=== PATIENT | female | born 1955 | race Two or more races ===

== ENCOUNTER 2019-10-31 12:36 | Emergency (ER) | payer OTHER ==
[2019-10-31 12:41] VITALS: BMI 25.0
--- NOTE | 2019-10-31 12:47 | PDOC ---
Rapid Medical Evaluation Chief Complaint: Blood Pressure Problem Time Seen by Provider: 10/31/19 12:38 Medical Evaluation: Allergies Allergy/AdvReac Type Severity Reaction Status Date / Time No Known Allergies Allergy Verified 10/31/19 12:41 Vital Signs Temp Pulse Resp BP Pulse Ox 98.8 F 70 19 235/108 H 98 10/31/19 12:39 10/31/19 12:39 10/31/19 12:39 10/31/19 12:39 10/31/19 12:39 10/31/19 12:46 I have performed a brief in-person evaluation of this patient. The patient presents with a chief complaint of:elevated BP at this am. Has h/o HTN on meds and reports compliance. No sxs at this time Pertinent physical exam findings:BP sig elevated at triage I have ordered the following:nothing The patient will proceed to the ED for further evaluation. 10/31/19 12:49 Discharge Disposition - Diagnosis Elevated blood pressure reading - Referrals - Patient Instructions - Post Discharge Activity
--- NOTE | 2019-10-31 13:08 | PDOC ---
History of Present Illness <GloriaLeopoldo - Last Filed: 10/31/19 16:43> - History of Present Illness Initial Comments: Geneva Neal is a 64 y/o female with PMH significant for hypertension and peripartum stroke in 1992, sent in from PCP today for high blood pressure. She recently moved from [place], where she was hospitalized earlier this year. She states that her BP is always above 200. Went to PCP today to establish care and was sent in for high blood pressure in the 230s. Prescribed metoprolol and chlorthalidone and continues to take those medications. No headache. No vision changes. No dizziness. No nausea/vomiting. No weakness. No numbness/tingling. No abd pain. No dysuria. No leg swelling. No chest pain/shortness of breath. <Mushtaq Lehman - Last Filed: 10/31/19 16:47> - General Chief Complaint: Blood Pressure Problem Stated Complaint: HYPERTENSION Time Seen by Provider: 10/31/19 12:38 Past History <Leopoldo Castro - Last Filed: 10/31/19 16:43> - Medical History COPD: No HTN: Yes - Psycho-Social/Smoking History Smoking History: Never smoked Have you smoked in the past 12 months: No Information on smoking cessation initiated: Yes - Substance Abuse Hx (Audit-C & DAST Scrn) How often the patient has a drink containing alcohol: Never Score: In Men: 4 or > Positive; In Women: 3 or > Positive: 0 Screen Result (Pos requires Nsg. Audit-10AR): Negative In the last yr the pt used illegal drug/Rx for NonMed reason: No Score: Yes response is considered Positive: 0 Screen Result (Positive result requires Nsg. DAST-10): Negative <Mushtaq Lehman - Last Filed: 10/31/19 16:47> - Medical History Allergies/Adverse Reactions: Allergies Allergy/AdvReac Type Severity Reaction Status Date / Time No Known Allergies Allergy Verified 10/31/19 12:41 Home Medications: Ambulatory Orders Aspirin [ASA -] 81 mg PO DAILY 10/31/19 Chlorthalidone 50 mg PO DAILY 10/31/19 Metoprolol Succinate 100 mg PO DAILY 10/31/19 Omeprazole 40 mg PO DAILY 10/31/19 Review of Systems - Review of Systems Comments:: GENERAL/CONSTITUTIONAL: No fever or chills. No weakness._ HEAD, EYES, EARS, NOSE AND THROAT: No change in vision. No change in hearing. No sore throat._ CARDIOVASCULAR: No chest pain or shortness of breath_ RESPIRATORY: Denies cough, hemoptysis_ GASTROINTESTINAL: No nausea, vomiting, diarrhea or constipation._ GENITOURINARY: No dysuria, frequency, or change in urination._ MUSCULOSKELETAL: No joint or muscle swelling or pain. No neck or back pain._ SKIN: No rash_ NEUROLOGIC: No headache, vertigo, loss of consciousness, or change in strength/sensation._ ENDOCRINE: No increased thirst. No abnormal weight change_ HEMATOLOGIC/LYMPHATIC: No anemia, easy bleeding, or history of blood clots._ ALLERGIC/IMMUNOLOGIC: No hives or skin allergy._ <Mushtaq Lehman - Last Filed: 10/31/19 16:47> *Physical Exam - Vital Signs Last Vital Signs Temp Pulse Resp BP Pulse Ox 98.5 F 87 19 205/98 H 98 10/31/19 16:00 10/31/19 16:00 10/31/19 16:00 10/31/19 16:00 10/31/19 13:55 <Leopoldo Castro - Last Filed: 10/31/19 16:43> - Vital Signs Last Vital Signs Temp Pulse Resp BP Pulse Ox 98.8 F 70 19 235/108 H 98 10/31/19 12:39 10/31/19 12:39 10/31/19 12:39 10/31/19 12:39 10/31/19 12:39 - Physical Exam GENERAL: Awake, alert, and oriented to person/place/time, in no acute distress_ HEAD: No signs of trauma, normocephalic, atraumatic _ EYES: PERRLA, EOMI, sclera anicteric, conjunctiva clear_ ENT: Hearing grossly normal, nares patent, oropharynx clear without exudates. No uvular deviation. Moist mucosa_ NECK: Normal ROM, supple, no lymphadenopathy, JVD, or masses_ LUNGS: No distress, speaks in full sentences, clear to auscultation bilaterally _ HEART: Regular rate and rhythm, normal S1 and S2, no murmurs appreciated, peripheral pulses normal and equal bilaterally._ ABDOMEN: Soft, nontender, normoactive bowel sounds. No guarding, no rebound. No masses_ EXTREMITIES: Normal inspection, Normal range of motion, no edema. No clubbing or cyanosis_ NEUROLOGICAL: Cranial nerves II through XII grossly intact. Normal speech, normal gait, no focal sensorimotor deficits _ SKIN: Warm, Dry, normal turgor, no rashes or lesions noted_ <Mushtaq Lehman - Last Filed: 10/31/19 16:47> ED Treatment Course - LABORATORY CBC & Chemistry Diagram: 10/31/19 13:43 10/31/19 13:43 - ADDITIONAL ORDERS Additional order review: Laboratory Results 10/31/19 10/31/19 15:58 13:43 Sodium 141 Potassium 4.5 Chloride 106 Carbon Dioxide 29 Anion Gap 6 L BUN 15.7 Creatinine 0.7 Est GFR (CKD-EPI)AfAm 106.87 Est GFR (CKD-EPI)NonAf 92.21 Random Glucose 97 Calcium 9.5 Total Bilirubin 0.5 AST 38 H ALT 41 Alkaline Phosphatase 147 H Creatine Kinase 133 Troponin I < 0.02 Total Protein 7.6 Albumin 3.6 Urine Color Yellow Urine Appearance Cloudy Urine pH 6.0 Ur Specific Thayer 1.026 Urine Protein 1+ H Urine Glucose (UA) Negative Urine Ketones Trace H Urine Blood Negative Urine Nitrite Negative Urine Bilirubin Negative Urine Urobilinogen 1.0 Ur Leukocyte Esterase Trace Urine WBC (Auto) 30 Urine RBC (Auto) 17 Urine Casts (Auto) 5 U Epithel Cells (Auto) >36 Urine Bacteria (Auto) 1742 10/31/19 13:43 RBC 4.86 MCV 84.9 MCHC 33.0 RDW 14.3 MPV 8.5 Neutrophils % 56.8 Lymphocytes % 34.6 Monocytes % 7.3 Eosinophils % 0.9 Basophils % 0.4 - Medications Given in the ED: ED Medications Discontinued Medications Generic Name Dose Route Start Last Admin Trade Name Freq PRN Reason Stop Dose Admin Metoprolol Succinate 50 mg 10/31/19 15:10 10/31/19 15:18 Toprol Xl - PO 10/31/19 15:11 50 mg ONCE ONE Administration <Leopoldo Castro - Last Filed: 10/31/19 16:43> - LABORATORY CBC & Chemistry Diagram: 10/31/19 13:43 10/31/19 13:43 <Mushtaq Lehman - Last Filed: 10/31/19 16:47> Medical Decision Making - Medical Decision Making 10/31/19 13:08 64F hx of HTN sent in from urgent care today for high blood pressure in the 230s. Currently on metoprolol and chlorthalidone. Asymptomatic with no symptoms of end organ damage. Hospitalized earlier this year for hypertensive urgency. -cbc, cmp -ekg, trop, cxr -ua 10/31/19 13:48 CXR negative for acute chest pathology. 10/31/19 14:21 EKG shows 61 bpm, NSR, LVH, HI 164, QTc 430, no ST elevation/depression. 10/31/19 15:09 Labs reviewed. Laboratory Last Values WBC 4.8 K/mm3 (4.0-10.0) 10/31/19 13:43 RBC 4.86 M/mm3 (3.60-5.2) 10/31/19 13:43 Hgb 13.7 GM/dL (10.7-15.3) 10/31/19 13:43 Hct 41.3 % (32.4-45.2) 10/31/19 13:43 MCV 84.9 fl (80-96) 10/31/19 13:43 MCH 28.1 pg (25.7-33.7) 10/31/19 13:43 MCHC 33.0 g/dl (32.0-36.0) 10/31/19 13:43 RDW 14.3 % (11.6-15.6) 10/31/19 13:43 Plt Count 210 K/MM3 (134-434) 10/31/19 13:43 MPV 8.5 fl (7.5-11.1) 10/31/19 13:43 Absolute Neuts (auto) 2.7 K/mm3 (1.5-8.0) 10/31/19 13:43 Neutrophils % 56.8 % (42.8-82.8) 10/31/19 13:43 Lymphocytes % 34.6 % (8-40) 10/31/19 13:43 Monocytes % 7.3 % (3.8-10.2) 10/31/19 13:43 Eosinophils % 0.9 % (0-4.5) 10/31/19 13:43 Basophils % 0.4 % (0-2.0) 10/31/19 13:43 Nucleated RBC % 0 % (0-0) 10/31/19 13:43 Sodium 141 mmol/L (136-145) 10/31/19 13:43 Potassium 4.5 mmol/L (3.5-5.1) 10/31/19 13:43 Chloride 106 mmol/L (98-107) 10/31/19 13:43 Carbon Dioxide 29 mmol/L (21-32) 10/31/19 13:43 Anion Gap 6 MMOL/L (8-16) L 10/31/19 13:43 BUN 15.7 mg/dL (7-18) 10/31/19 13:43 Creatinine 0.7 mg/dL (0.55-1.3) 10/31/19 13:43 Est GFR (CKD-EPI)AfAm 106.87 10/31/19 13:43 Est GFR (CKD-EPI)NonAf 92.21 10/31/19 13:43 Random Glucose 97 mg/dL (74-106) 10/31/19 13:43 Calcium 9.5 mg/dL (8.5-10.1) 10/31/19 13:43 Total Bilirubin 0.5 mg/dL (0.2-1) 10/31/19 13:43 AST 38 U/L (15-37) H 10/31/19 13:43 ALT 41 U/L (13-61) 10/31/19 13:43 Alkaline Phosphatase 147 U/L (45-117) H 10/31/19 13:43 Creatine Kinase 133 U/L (26-192) 10/31/19 13:43 Troponin I < 0.02 ng/ml (0.00-0.05) 10/31/19 13:43 Total Protein 7.6 g/dl (6.4-8.2) 10/31/19 13:43 Albumin 3.6 g/dl (3.4-5.0) 10/31/19 13:43 10/31/19 16:46 UA reviewed. Urine Test Results Urine Color Yellow 10/31/19 15:58 Urine Appearance Cloudy 10/31/19 15:58 Urine pH 6.0 (5.0-8.0) 10/31/19 15:58 Ur Specific Thayer 1.026 (1.010-1.035) 10/31/19 15:58 Urine Protein 1+ (NEGATIVE) H 10/31/19 15:58 Urine Glucose (UA) Negative (NEGATIVE) 10/31/19 15:58 Urine Ketones Trace (NEGATIVE) H 10/31/19 15:58 Urine Blood Negative (NEGATIVE) 10/31/19 15:58 Urine Nitrite Negative (NEGATIVE) 10/31/19 15:58 Urine Bilirubin Negative (NEGATIVE) 10/31/19 15:58 Ur Leukocyte Esterase Trace (NEGATIVE) 10/31/19 15:58 Plan to d/c home with PCP f/u on Tuesday. Pt remains asymptomatic at this time. Strict return precautions given. All questions answered. Pt verbalized understanding and agreement with plan. <Mushtaq Lehman - Last Filed: 10/31/19 16:47> Discharge <Leopoldo Castro - Last Filed: 10/31/19 16:43> - Discharge Information Problems reviewed: Yes - Admission No <Mushtaq Lehman - Last Filed: 10/31/19 16:47> - Discharge Information Clinical Impression/Diagnosis: Elevated blood pressure reading Condition: Stable Disposition: HOME - Follow up/Referral Referrals: Raf Craig [Primary Care Provider] - - Patient Discharge Instructions Patient Printed Discharge Instructions: DI for High Blood Pressure Additional Instructions: You need to have your blood pressure re-checked by your primary doctor as soon as possible, as it was elevated today. Uncontrolled blood pressure can eventually lead to kidney disease, heart disease, other serious illness, disability, or even . Please keep your appointment with your primary care doctor on Tuesday and discuss ways to lower your blood pressure. If you experience any chest pain, shortness of breath, headache, vision changes, or any other concerning symptoms, return to the ER immediately.
[2019-10-31 13:56] VITALS: TEMP 98.5
[2019-10-31 13:57] LABS: BASO % 0.4 % (0-2.0); EOS % 0.9 % (0-4.5); HEMATOCRIT 41.3 % (32.4-45.2); HEMOGLOBIN 13.7 GM/dL (10.7-15.3); LYMPH % 34.6 % (8-40); MCH 28.1 pg (25.7-33.7); MEAN CELL VOLUME 84.9 fl (80-96); MEAN PLT VOLUME 8.5 fl (7.5-11.1); MONO % 7.3 % (3.8-10.2); NEUT % 56.8 % (42.8-82.8); PLATELET COUNT 210 K/MM3 (134-434); RBC 4.86 M/mm3 (3.60-5.2); RDW 14.3 % (11.6-15.6); WHITE BLOOD COUNT 4.8 K/mm3 (4.0-10.0)
--- NOTE | 2019-10-31 14:36 | PDOC ---
Documentation entered by Najma Veronica SCRIBE, acting as scribe for Leopoldo Castro MD. Leopoldo Castro MD: This documentation has been prepared by the Jeremías sanches Ana, SCRIBE, under my direction and personally reviewed by me in its entirety. I confirm that the documentation accurately reflects all work, treatment, procedures, and medical decision making performed by me. Attending Attestation - Resident Resident Name: DominikMushtaq - ED Attending Attestation I have performed the following: I have examined & evaluated the patient, The case was reviewed & discussed with the resident, I agree w/resident's findings & plan, Exceptions are as noted - HPI HPI: 10/31/19 13:06 Patient is a 64 year old female with a significant past medical history of hypertension and peripartum stroke in 1992, who presents to the ED, from PCP's office, with high blood pressure. Patient stated her blood pressure is usually around 200 but that it was in the 230s today at PCP's office. Patient was hospitalized in [place] earlier this year for hypertensive urgency. Patient is compliant with prescribed medications. Patient denies: weakness, fevers, chills, headaches, dizziness, any vision changes, nausea,vomiting, SOB, chest pain, abdominal pain, back pain, any urinary issues, diarrhea, extremity edema, any numbness/tingling, or any other related symptoms. Allergies: NKDA PCP: Dr. Raf Craig - Physicial Exam PE: 10/31/19 13:07 See resident exam - Medical Decision Making 10/31/19 14:37 64 F with asymptomatic hypertension. EKG shows LVH, no acute ischemic changes. - Labs, trop - recheck BP Labs wnl Pt's BP improved but still elevated, though this is likely her baseline. Will defer to PMD and cards for [facility] ou[facility] management of her BP. Pt is well appearing, Clinically stable for DC at this time. I discussed the physical exam findings, ancillary test results and final diagnoses with the patient. I answered all of the patient's questions. The patient was satisfied with the care received and felt comfortable with the discharge plan and treatment plan. The patient agrees to follow up with the primary care physician within 24-72 hours. Please note this patient was evaluated during the COVID-19 crisis with the presidential [place] Act Declaration and the [place] governor executive order number 202. He/she was evaluated and clinical decisions were made relative to healthcare system resources as well as clinical picture during a pandemic crisis situation. Discharge - Discharge Information Problems reviewed: Yes Clinical Impression/Diagnosis: Elevated blood pressure reading Condition: Stable Disposition: HOME - Follow up/Referral Referrals: Raf Craig [Primary Care Provider] - - Patient Discharge Instructions Patient Printed Discharge Instructions: DI for High Blood Pressure Additional Instructions: You need to have your blood pressure re-checked by your primary doctor as soon as possible, as it was elevated today. Uncontrolled blood pressure can eventually lead to kidney disease, heart disease, other serious illness, disability, or even . Please keep your appointment with your primary care doctor on Tuesday and discuss ways to lower your blood pressure. If you experience any chest pain, shortness of breath, headache, vision changes, or any other concerning symptoms, return to the ER immediately. - Post Discharge Activity
[2019-10-31 14:40] LABS: ALBUMIN 3.6 g/dl (3.4-5.0); ALK PHOS 147 U/L (45-117); ANION GAP 6 MMOL/L (8-16); BILIRUBIN,TOTAL 0.5 mg/dL (0.2-1); BLOOD UREA NITROGEN 15.7 mg/dL (7-18); CALCIUM 9.5 mg/dL (8.5-10.1); CHLORIDE 106 mmol/L (98-107); CO2 29 mmol/L (21-32); CREATININE 0.7 mg/dL (0.55-1.3); GLUCOSE,RANDOM 97 mg/dL (74-106); POTASSIUM 4.5 mmol/L (3.5-5.1); SGOT/AST 38 U/L (15-37); SGPT/ALT 41 U/L (13-61); SODIUM 141 mmol/L (136-145); TOT PROT 7.6 g/dl (6.4-8.2)
[2019-10-31 16:32] LABS: EPI CELLS >36 /uL (0-25.1); HYALINE CASTS 5 /uL (0-3.1); URINE APPEARANCE CLOUDY; URINE BACTERIA 1742 /uL (0-1359); URINE BILIRUBIN NEGATIVE (NEGATIVE); URINE COLOR YELLOW; URINE GLUCOSE (UA) NEGATIVE (NEGATIVE); URINE KETONE TRACE (NEGATIVE); URINE LEUK ESTERASE TRACE (NEGATIVE); URINE NITRITE NEGATIVE (NEGATIVE); URINE PROTEIN 1+ (NEGATIVE); URINE RBC 17 /uL (0-23.9); URINE WBC 30 /uL (0-25.8)
[2019-10-31 17:10] VITALS: BP 205/86; PULSE 88
--- NOTE | 2019-11-01 12:11 | EKG ---
Test Reason : Blood Pressure : / mmHG Vent. Rate : 061 BPM Atrial Rate : 061 BPM P-R Int : 164 ms QRS Dur : 088 ms QT Int : 428 ms P-R-T Axes : 052 -19 004 degrees QTc Int : 430 ms NORMAL SINUS RHYTHM VOLTAGE CRITERIA FOR LEFT VENTRICULAR HYPERTROPHY ABNORMAL ECG NO PREVIOUS ECGS AVAILABLE Confirmed by GISSEL NIEVES MD ([id number]) on 11/01/2019 12:11:16 PM Referred By: Confirmed By:GISSEL NIEVES MD
== END 2019-10-31 17:11 | disposition home or self-care (01) ==
LOC: JER 12:36
DX: R03.0 Elevated blood-pressure reading, without diagnosis of hypertension (principal)
CPT/HCPCS: 36415; 71045-TC-FY; 80053; 81003; 82550; 84484; 85025; 93005; 93010; 99285-25

== ENCOUNTER 2021-11-07 09:49 | Emergency (ER) | payer OTHER ==
[2021-11-07 09:59] VITALS: BP 178/90; PULSE 91; RESP 18; TEMP 98.2; BMI 28.3
[2021-11-07] MEDS ORDERED: KETOROLAC TROMETHAMINE 15 MG/ML VIAL IM ONE (10:31)
[2021-11-07] MEDS ORDERED: METHOCARBAMOL 500 MG TABLET PO ONE (10:31)
[2021-11-07] MEDS ORDERED: DIPHTH,PERTUSS(ACELL),TET 0.5 ML DISP.SYRIN IM ONE ×2 (10:31→10:49)
[2021-11-07] MEDS ORDERED: KETOROLAC TROMETHAMINE 15 MG/ML VIAL ONE (10:49)
[2021-11-07] MEDS ORDERED: METHOCARBAMOL 500 MG TABLET ONE (10:49)
== END 2021-11-07 11:12 | disposition home or self-care (01) ==
LOC: JERFT 09:49
PROC: 3E023GC Introduction of Other Therapeutic Substance into Muscle, Percutaneous Approach (ICD-10-PCS; principal; 2021-11-07)
PROC: 3E0234Z Introduction of Serum, Toxoid and Vaccine into Muscle, Percutaneous Approach (ICD-10-PCS; principal; 2021-11-07)
DX: M54.50 Low back pain, unspecified (principal); M25.511 Pain in right shoulder
CPT/HCPCS: 73060-TC-RT-FY; 90471; 90715; 96372; 99284-25